=== PATIENT | male | born 1940 | race Caucasian/White ===

== ENCOUNTER 2022-02-26 12:00 | Outpatient (CLI) | payer OTHER | END 2022-02-26 12:01 | disposition home or self-care (01) | LOC: CSHCT 12:00 | PROVIDERS: ATTEND Internal Medicine | DX: R19.03 Right lower quadrant abdominal swelling, mass and lump (principal); K57.30 Diverticulosis of large intestine without perforation or abscess without bleeding; N32.89 Other specified disorders of bladder | CPT/HCPCS: 74176 ==

== ENCOUNTER 2025-08-02 12:57 | Outpatient (CLI) | payer OTHER ==
[2025-08-02 15:10] LABS: Estimated GFR - POC 84.0
== END 2025-08-02 12:58 | disposition home or self-care (01) ==
LOC: CSHCT 12:57
PROVIDERS: ATTEND Internal Medicine Cardiovascular Disease
DX: I77.810 Thoracic aortic ectasia (principal)
CPT/HCPCS: 71275; 82565